=== PATIENT | male | born 1985 | race Two or more races ===

== ENCOUNTER 2022-08-19 03:25 | Emergency (ER) | payer BC, OTHER ==
[2022-08-19 03:38] VITALS: BP 112/74; PULSE 102; RESP 18; TEMP 100.3; BMI 25.7
== END 2022-08-19 04:51 | disposition home or self-care (01) ==
LOC: FER 03:25
DX: U07.1 COVID-19 (principal); R07.81 Pleurodynia
CPT/HCPCS: 71045-TC-FY; 99283-25